=== PATIENT | female | born 1955 | race Caucasian/White ===

== ENCOUNTER 2016-06-19 09:28 | Outpatient (CLI) | payer OTHER ==
--- NOTE | 2016-06-19 13:41 | DIAGNOSTIC IMAGING REPORT ---
PROCEDURE: MG B/L IMPLANTS - SCREENING INDICATION: SCREENING TECHNIQUE: CC and MLO digital views of each breast with CC and MLO digital implant-displacement views. COMPARISON: Comparison is made to left mammogram (the 06/12/2015) and bilateral mammogram studies (05/20/2015, 11/01/2012). FINDINGS: Computer-aided detection applied. Bilateral submammary implants appear intact. The visualized portions of the surrounding breast parenchyma are mildly dense with a few dystrophic calcifications, but unchanged, and within normal limits. IMPRESSION: 1. Negative mammogram. RESULT CODE: 1- Negative. A. A negative report should not delay biopsy if a dominant or clinically suspicious mass is present. 10-15% of cancers are not identified by x-ray. B. A negative report may reinforce clinical impression. C. Adenosis and dense breasts may obscure an underlying neoplasm. D. False positive reports average 6-10%. E.. A yearly screening mammogram is recommended. A reminder letter will be scheduled.
== END 2016-06-19 23:00 ==
LOC: MAM SRH 09:28
DX: Z12.31 Encounter for screening mammogram for malignant neoplasm of breast (principal)

== ENCOUNTER 2016-06-26 13:30 | Outpatient (CLI) | payer OTHER ==
--- NOTE | 2016-06-26 15:47 | DIAGNOSTIC IMAGING REPORT ---
PROCEDURE: US VENOUS - LEFT EXT INDICATION: LEFT CALF PAIN; ELEVATED D-DIMER, initial encounter TECHNIQUE: Duplex sonography of the deep venous system in the left lower extremity was performed. Compression and augmentation techniques were used. COMPARISON: None. FINDINGS: Normal compression of the greater saphenous, common femoral, superficial femoral, popliteal, peroneal, and posterior tibial veins. Normal augmentation. There is no evidence of superficial or deep venous thrombosis. 5.2 cm popliteal cyst. IMPRESSION: 1. No evidence of a left lower extremity DVT 2. Popliteal cyst
== END 2016-06-26 23:00 ==
LOC: US SRH 13:30
DX: M79.605 Pain in left leg (principal); R79.1 Abnormal coagulation profile

== ENCOUNTER 2016-11-06 10:14 | Outpatient (CLI) | payer OTHER | END 2016-11-06 23:00 | disposition home or self-care (01) | LOC: RT SRH 10:14 | DX: N10 Acute pyelonephritis (principal) ==